=== PATIENT | female | born 1965 | race Caucasian/White ===

== ENCOUNTER 2019-06-29 19:27 | Emergency (ER) | payer BC, OTHER ==
[~2019-06-29] VITALS: Ht 170.2 cm; Wt 49.5 kg
[2019-06-29] MEDS ORDERED: ZONI100C2 PO (19:44)
[2019-06-29] MEDS ORDERED: ESTR1TAB PO (19:44)
[2019-06-29] MEDS ORDERED: PRED5TA PO (19:44)
[2019-06-29] MEDS ORDERED: DEPA250T32 PO (19:44)
[2019-06-29] MEDS ORDERED: CHOL100029 PO (19:44)
[2019-06-29] MEDS ORDERED: KEPP1TAB PO (19:44)
[2019-06-29] MEDS ORDERED: POTA1TAB23 PO (19:44)
[2019-06-29] MEDS ORDERED: HEPARIN (19:47)
[2019-06-29] MEDS ORDERED: levETIRAcetam INJection 500 MG in D5W MINI-BAG PLUS 100 ML IV ONE (21:30)
[2019-06-29] MEDS ORDERED: VALPROATE SOD INJ 500 MG in D5W 50 ML IV ONE (21:30)
[2019-06-29] MEDS ORDERED: CREON-24 CAPSULE PO ONE (21:42)
[2019-06-29] MEDS ORDERED: ZONISAMIDE 100 MG CAP (ZONEGRAN) PO ONE (21:45)
[2019-06-29] MEDS ORDERED: levETIRAcetam 250MG TABLET (KEPPRA) PO ONE (22:15)
[2019-06-29] MEDS ORDERED: DIVALPROEX 500 MG TAB PO ONE (22:15)
[2019-06-29 23:01] VITALS: BP 125/59
== END 2019-06-29 23:05 | disposition home or self-care (01) ==
LOC: M ED 19:27
DX: K94.29 Other complications of gastrostomy (principal); Z88.5 Allergy status to narcotic agent; Z88.8 Allergy status to other drugs, medicaments and biological substances; Z79.899 Other long term (current) drug therapy

== ENCOUNTER 2023-04-03 14:21 | Observation (INO) | payer MEDICARE, BC, OTHER, MEDICAID ==
[~2023-04-03] VITALS: Ht 170.2 cm; Wt 77.0 kg
[~2023-04-03 14:21] MED LIST: CHOL100029 PO; DEPA250T32 PO; ESTR1TAB PO; HEPARIN; KEPP1TAB PO; POTA1TAB23 PO; PRED5TA PO; ZONI100C67 PO
[2023-04-03] MEDS ORDERED: HYOSCYAMINE SULFATE 0.125 MG SUBL TABLET PO PRN (16:40)
[2023-04-03] MEDS ORDERED: LORazepam 2 MG/ML 1ML VIAL IV PRN (16:40)
[2023-04-03] MEDS ORDERED: ATROPINE SULFATE 1% OPHTH SOLN 2ML BTL SL PRN (16:40)
[2023-04-03] MEDS ORDERED: ACETAMINOPHEN 650MG SUPP PR PRN (16:40)
[2023-04-03] MEDS ORDERED: FLEET ENEMA PR PRN (16:40)
[2023-04-03] MEDS ORDERED: BISACODYL 10MG SUPP PR PRN (16:40)
[2023-04-03] MEDS ORDERED: ONDANSETRON 4MG 2ML VIAL IV PRN (16:40)
[2023-04-03] MEDS ORDERED: MORPHINE 2 MG/ML 1ML VIAL IV PRN (16:40)
[2023-04-03] MEDS: SCOPOLAMINE 1MG TRANSDERMAL PATCH TOP PRN (17:45)
[2023-04-03] MEDS: levETIRAcetam INJection 1,000 MG in D5W 100 ML IV SCH (22:20)
[2023-04-03] MEDS: VALPROATE SOD INJ 500 MG in D5W 50 ML IV SCH (23:19)
[2023-04-04] MEDS: VALPROATE SOD INJ 500 MG in D5W 50 ML IV SCH ×4 (05:52→23:46)
[2023-04-04] MEDS: levETIRAcetam INJection 1,000 MG in D5W 100 ML IV SCH ×2 (09:34→20:53)
[2023-04-05] MEDS: VALPROATE SOD INJ 500 MG in D5W 50 ML IV SCH ×3 (05:06→18:35)
[2023-04-05] MEDS: levETIRAcetam INJection 1,000 MG in D5W 100 ML IV SCH ×2 (08:39→21:34)
[2023-04-06] MEDS: VALPROATE SOD INJ 500 MG in D5W 50 ML IV SCH ×4 (00:09→17:38)
[2023-04-06] MEDS: MORPHINE 4 MG/ML 1ML VIAL IV PRN (05:46)
[2023-04-06] MEDS: levETIRAcetam INJection 1,000 MG in D5W 100 ML IV SCH ×2 (10:09→20:42)
[2023-04-06] MEDS: SCOPOLAMINE 1MG TRANSDERMAL PATCH TOP PRN (18:06)
[2023-04-07] MEDS: VALPROATE SOD INJ 500 MG in D5W 50 ML IV SCH ×2 (00:19→05:21)
[2023-04-07] MEDS: levETIRAcetam INJection 1,000 MG in D5W 100 ML IV SCH ×2 (09:40→21:40)
[2023-04-07] MEDS ORDERED: ATIV1TAB10 PO (14:12)
[2023-04-07] MEDS ORDERED: LEVE15SO PO (14:12)
[2023-04-07] MEDS ORDERED: VALP250S PO (14:12)
[2023-04-07] MEDS ORDERED: HOME MED LIST COMPLETE! XX SCH (14:15)
[2023-04-07] MEDS: VALPROIC ACID 250MG/5ML SOL ORAL SYRINGE *DRAW UP EXACT DOSE PEG SCH (18:14)
[2023-04-07] MEDS ORDERED: ZONISAMIDE 100 MG CAP (ZONEGRAN) PEG SCH (21:00)
[2023-04-08] MEDS: VALPROIC ACID 250MG/5ML SOL ORAL SYRINGE *DRAW UP EXACT DOSE PEG SCH ×2 (00:31→05:09)
[2023-04-08] MEDS: MORPHINE 4 MG/ML 1ML VIAL IV PRN (05:10)
[2023-04-08] MEDS: levETIRAcetam INJection 1,000 MG in D5W 100 ML IV SCH ×2 (10:15→22:07)
[2023-04-08] MEDS: VALPROATE SOD INJ 500 MG in D5W 50 ML IV SCH ×2 (11:23→18:28)
[2023-04-08] MEDS: ZONISAMIDE PEG SCH (22:06)
[2023-04-09] MEDS: VALPROATE SOD INJ 500 MG in D5W 50 ML IV SCH ×2 (01:13→05:46)
[2023-04-09] MEDS ORDERED: HYOSCYAMINE SULFATE 0.125 MG SUBL TABLET PEG PRN (09:05)
[2023-04-09] MEDS ORDERED: LORazepam 1 MG TAB PEG PRN (09:05)
[2023-04-09] MEDS ORDERED: MORPHINE 10MG/0.5ML ORAL CONCENTRATE SOLUTION U/D PEG PRN (09:05)
[2023-04-09] MEDS: ZONISAMIDE PEG SCH ×2 (09:34→20:49)
[2023-04-09] MEDS: levETIRAcetam 250MG TABLET (KEPPRA) PEG SCH ×2 (09:35→20:49)
[2023-04-09] MEDS: dexAMETHasone 4 MG TAB PEG SCH ×3 (11:26→23:54)
[2023-04-09] MEDS ORDERED: VALPROIC ACID 250MG CAP PEG SCH (12:00)
[2023-04-09] MEDS: VALPROIC ACID 250MG/5ML SOL ORAL SYRINGE *DRAW UP EXACT DOSE PEG SCH ×3 (12:21→23:54)
[2023-04-09] MEDS: SCOPOLAMINE 1MG TRANSDERMAL PATCH TOP PRN (17:04)
[2023-04-10] MEDS: VALPROIC ACID 250MG/5ML SOL ORAL SYRINGE *DRAW UP EXACT DOSE PEG SCH ×2 (06:10→12:03)
[2023-04-10] MEDS: dexAMETHasone 4 MG TAB PEG SCH ×2 (06:10→12:02)
[2023-04-10] MEDS: levETIRAcetam 250MG TABLET (KEPPRA) PEG SCH (10:09)
[2023-04-10] MEDS ORDERED: HYOS125TA PO (11:00)
[2023-04-10] MEDS ORDERED: MORP1SOL5 PO (11:00)
[2023-04-10] MEDS ORDERED: ATIV1TAB10 PO (11:00)
[2023-04-10] MEDS ORDERED: LEVE15SO PEG (11:03)
[2023-04-10] MEDS ORDERED: VALP250S PEG (11:03)
[2023-04-10] MEDS ORDERED: ZONI100C67 PEG (11:03)
[2023-04-10] MEDS: ZONISAMIDE PEG SCH (12:06)
[2023-04-10] MEDS ORDERED: DEXA4TA PEG (12:36)
== END 2023-04-10 12:55 | disposition other institution (70) ==
LOC: ENRESERV 14:29 → M MS5PR 16:16
PROVIDERS: ADMIT Internal Medicine; ATTEND Internal Medicine
DX: R11.2 Nausea with vomiting, unspecified (principal); R13.10 Dysphagia, unspecified; C71.9 Malignant neoplasm of brain, unspecified; R62.7 Adult failure to thrive; R25.8 Other abnormal involuntary movements; Z98.890 Other specified postprocedural states; I62.9 Nontraumatic intracranial hemorrhage, unspecified; Z93.1 Gastrostomy status; Z88.5 Allergy status to narcotic agent; Z88.8 Allergy status to other drugs, medicaments and biological substances; Z79.899 Other long term (current) drug therapy; Z51.5 Encounter for palliative care; Z66 Do not resuscitate
CPT/HCPCS: 96365; 96366; 96367; 96375; 96376; G0378; J1100; J1953; J2405

== ENCOUNTER 2023-04-03 16:00 | Emergency (ER) | payer SELFPAY | END 2023-04-03 16:23 | disposition home or self-care (01) | LOC: EDBD 16:00 → M ED 16:00 | DX: Z53.21 Procedure and treatment not carried out due to patient leaving prior to being seen by health care provider (principal) ==